=== PATIENT | male | born 1950 | race Caucasian/White ===

== ENCOUNTER 2019-10-01 20:47 | Emergency (ER) | payer MEDICARE, OTHER ==
--- NOTE | 2019-10-01 22:07 | EDM.PDOC ---
ED HPI GENERAL MEDICAL PROBLEM - General Chief Complaint: Bite:Animal, Insect Stated Complaint: TICK HEAD EMBEDDED IN L ARM Time Seen by Provider: 10/01/19 21:50 Source of Information: Reports: Patient History Limitations: Reports: No Limitations - History of Present Illness INITIAL COMMENTS - FREE TEXT/NARRATIVE: Gregg presents with a tick bite to left upper arm. He attempted to removed the the tick and now has the head remaining. He is unsure of how long the tick was imbedded. Tick brought in to view. Engorged deer tick. Denies pain Pain Score (Numeric/FACES): 0 - Related Data Allergies Allergy/AdvReac Type Severity Reaction Status Date / Time No Known Allergies Allergy Verified 10/01/19 21:39 Home Meds: Home Meds NK [No Known Home Meds] 10/01/19 [History] Past Medical History HEENT History: Reports: Hard of Hearing, Impaired Vision Musculoskeletal History: Reports: Fracture, Other (See Below) Other Musculoskeletal History: right hip fx - Infectious Disease History Infectious Disease History: Reports: Chicken Pox - Past Surgical History Musculoskeletal Surgical History: Reports: Other (See Below) Other Musculoskeletal Surgeries/Procedures:: right hip surgical repair Social & Family History - Tobacco Use Smoking Status *Q: Never Smoker - Recreational Drug Use Recreational Drug Use: No ED ROS GENERAL - Review of Systems Review Of Systems: See Below Constitutional: Reports: No Symptoms HEENT: Reports: No Symptoms Respiratory: Reports: No Symptoms Cardiovascular: Reports: No Symptoms Endocrine: Reports: No Symptoms Musculoskeletal: Reports: No Symptoms Skin: Reports: Other (Tick bite with head remaining in Letf upper arm) Psychiatric: Reports: No Symptoms Hematologic/Lymphatic: Reports: No Symptoms Immunologic: Reports: No Symptoms ED EXAM, ANIMAL BITE - Physical Exam Exam: See Below Exam Limited By: No Limitations General Appearance: Alert, WD/WN, No Apparent Distress Respiratory/Chest: No Respiratory Distress, Lungs Clear, Normal Breath Sounds, No Accessory Muscle Use, Chest Non-Tender Cardiovascular: Normal Peripheral Pulses, Regular Rate, Rhythm, No Edema Extremities: Normal Inspection, Normal Range of Motion, Non-Tender, Normal Capillary Refill, Other (1.5cm circular area of erythema to left upper arm, head of tick imbedded) Neurological: Alert, Oriented, No Motor/Sensory Deficits Psychiatric: Normal Affect, Normal Mood Skin Exam: Normal Color, Warm/Dry, Other (erythema 1.5cm circular area around imbedded deer tick. Tick engorged) ED ANIMAL BITE PROCEDURES - Foreign Body Removal Consent Obtained: Patient Performing Doctor:: Ame Chin Anesthesia Type: Local Anesthesia Other:: 1%lidocaine 0.2ml lidocaine Findings:: Skin cleaned with soap, water and alcohol. Deeply imbedded head of deer tick, magnification utilized for removal. Patient tolerated well. No bleeding noted. Complications:: No Course - Vital Signs Last Recorded V/S: Last Vital Signs Temp 36.4 C 10/01/19 21:39 Pulse 70 10/01/19 21:39 Resp 16 10/01/19 21:39 BP 152/77 H 10/01/19 21:39 Pulse Ox 93 L 10/01/19 21:39 - Orders/Labs/Meds Meds: Medications Discontinued Medications Generic Name Dose Route Start Last Admin Trade Name Krishanq PRN Reason Stop Dose Admin Lidocaine HCl 5 ml 10/01/19 22:03 10/01/19 22:09 Xylocaine-Mpf 1% INJECT 10/01/19 22:04 5 ml ONETIME ONE Administration Departure - Departure Time of Disposition: 22:42 Disposition: Home, Self-Care 01 Condition: Good Clinical Impression: Tick bite of left upper arm - Discharge Information *PRESCRIPTION DRUG MONITORING PROGRAM REVIEWED*: Not Applicable *COPY OF PRESCRIPTION DRUG MONITORING REPORT IN PATIENT LAURA: Not Applicable Instructions: Tick Bite Information, Adult, [id number] Referrals: PCP,None [Primary Care Provider] - Forms: ED Department Discharge Additional Instructions: Keep area clean and dry. Take doxycycline 100mg PO twice per day for 14 days. Follow up with primary as needed. Sepsis Event Note - Evaluation Sepsis Screening Result: No Definite Risk - Focused Exam Vital Signs: Vital Signs Temp Pulse Resp BP Pulse Ox 10/01/19 21:39 36.4 C 70 16 152/77 H 93 L 10/01/19 21:18 36.4 C 70 16 152/77 H 93 L Date Exam was Performed: 10/01/19 Time Exam was Performed: 22:38 - Assessment/Plan Assessment:: [place] tick left upper arm Plan: Keep area clean and dry. Take doxycycline 100mg PO twice per day for 14 days. Follow up with primary as needed.
== END 2019-10-01 23:05 | disposition home or self-care (01) ==
LOC: JP.ED 20:47
DX: S40.862A Insect bite (nonvenomous) of left upper arm, initial encounter (principal); W57.XXXA Bitten or stung by nonvenomous insect and other nonvenomous arthropods, initial encounter
CPT/HCPCS: 99282; J2001